=== PATIENT | female | born 1985 | race Two or more races ===

== ENCOUNTER 2025-02-14 20:08 | Emergency (ER) | payer OTHER ==
[~2025-02-14] VITALS: Ht 157.5 cm; Wt 81.6 kg
[2025-02-14] MEDS ORDERED: ZESTRIL2.5 MG (20:27)
[2025-02-14 21:28] LABS: BASO % 0.5 % (0.1-1.2); EOS # 0.12 (0.04-0.54); EOS % 1.1 % (0.7-7.0); LYMPH # 2.80 (1.18-3.74); LYMPH % 26.7 % (19.3-53.1); MEAN PLATELET VOLUME 10.60 fl (9.4-12.4); MONO # 0.73 (0.24-0.82); MONO % 7.0 % (4.7-12.5); NEUT # 6.77 (1.56-6.13); NEUT % 64.5 % (34.0-71.1); RED CELL DISTRIBUTION WIDTH 11.9 % (11.6-14.4)
[2025-02-14 21:42] LABS: URINE APPEARANCE Clear; URINE BILIRRUBIN Negative (NEGATIVE); URINE BLOOD Negative; URINE COLOR Yellow; URINE GLUCOSE Negative (NEGATIVE); URINE KETONE Negative (NEGATIVE); URINE LEUKOCYTE Negative; URINE NITRATE Negative; URINE PROTEIN Negative (NEGATIVE); URINE UROBILINOGEN 0.2 E.U./dl
[2025-02-14 21:45] LABS: URINE BACTERIA 1656.8 uL (0.0-1933); URINE EPITHELIAL CELLS 11.8 uL (0.0-38.8); URINE RBC 18.9 uL (0.0-20.8); URINE WBC 8.9 uL (0.0-23.2)
[2025-02-14 21:46] LABS: URINE CAST 0.00 uL (0.0-1.40)
[2025-02-14 21:49] LABS: INR 0.97
[2025-02-14 21:53] LABS: ALT/SGPT 28.0 U/L (12-78); AST/SGOT 9.0 U/L (15-37); BILIRUBIN TOTAL 0.34 mg/dL (0.3-1.2); BUN CREA RATIO 20.0 (7.0-25.0); CREATININE SERUM 0.84 mg/dL (0.55-1.02); GFR 75.88; GLOBULINA 3.5 G/DL (2.4-3.5); GLUCOSE FASTING 115.0 mg/dL (65-100); OSMOLALITY SERUM 284.0 MOSM/KG (275-295)
[2025-02-14] MEDS ORDERED: DULCOLAX STOOL100 M1 PO (23:07)
== END 2025-02-14 23:16 | disposition home or self-care (01) ==
LOC: ER 20:15
PROVIDERS: General Practice
DX: R10.32 Left lower quadrant pain (principal); Z91.040 Latex allergy status; K59.00 Constipation, unspecified

== ENCOUNTER 2025-02-23 11:48 | Emergency (ER) | payer OTHER ==
[~2025-02-23] VITALS: Ht 157.5 cm; Wt 81.6 kg
[~2025-02-23 11:48] MED LIST: DULCOLAX STOOL100 M1 PO; ZESTRIL2.5 MG
[2025-02-23] MEDS ORDERED: KETOROLAC TROMETHAMINE 60 MG VIAL IM ONE (15:30)
[2025-02-23 16:01] LABS: BASO % 0.7 % (0.1-1.2); EOS # 0.05 (0.04-0.54); EOS % 0.5 % (0.7-7.0); LYMPH # 2.15 (1.18-3.74); LYMPH % 20.6 % (19.3-53.1); MEAN PLATELET VOLUME 10.70 fl (9.4-12.4); MONO # 0.49 (0.24-0.82); MONO % 4.7 % (4.7-12.5); NEUT # 7.68 (1.56-6.13); NEUT % 73.3 % (34.0-71.1); RED CELL DISTRIBUTION WIDTH 12.1 % (11.6-14.4)
[2025-02-23 16:19] LABS: ALT/SGPT 32.0 U/L (12-78); AST/SGOT 15.0 U/L (15-37); BILIRUBIN TOTAL 0.45 mg/dL (0.3-1.2); BUN CREA RATIO 11.0 (7.0-25.0); CREATININE SERUM 0.99 mg/dL (0.55-1.02); GFR 62.77; GLOBULINA 3.9 G/DL (2.4-3.5); GLUCOSE FASTING 119.0 mg/dL (65-100); OSMOLALITY SERUM 280.0 MOSM/KG (275-295)
[2025-02-23 16:27] LABS: URINE APPEARANCE Clear; URINE BILIRRUBIN Negative (NEGATIVE); URINE BLOOD Negative; URINE COLOR Yellow; URINE GLUCOSE Negative (NEGATIVE); URINE KETONE Negative (NEGATIVE); URINE LEUKOCYTE Trace; URINE NITRATE Negative; URINE PROTEIN Negative (NEGATIVE); URINE UROBILINOGEN 0.2 E.U./dl
[2025-02-23 16:31] LABS: URINE BACTERIA 866.4 uL (0.0-1933); URINE EPITHELIAL CELLS 5.5 uL (0.0-38.8); URINE RBC 5.5 uL (0.0-20.8); URINE WBC 8.2 uL (0.0-23.2)
[2025-02-23 16:47] LABS: URINE CAST 0.00 uL (0.0-1.40)
[2025-02-23] MEDS ORDERED: DIPHENHYDRAMINE HCL 50 MG/ML VIAL 1ML IV ONE (21:00)
[2025-02-23] MEDS ORDERED: METHYLPREDNISOLONE SOD SUCC 125 MG VIAL IV ONE (21:00)
[2025-02-23] MEDS ORDERED: MACROBID 100 M100 MG PO (22:14)
== END 2025-02-23 23:13 | disposition home or self-care (01) ==
LOC: ER 11:48
PROVIDERS: General Practice
DX: R10.9 Unspecified abdominal pain (principal); I10 Essential (primary) hypertension; Z91.013 Allergy to seafood
CPT/HCPCS: 36415; 74177; Q9965